=== PATIENT | male | born 1990 ===

== ENCOUNTER 2020-12-04 07:24 | Emergency (ER) | payer OTHER, SELFPAY ==
[2020-12-04 07:36] VITALS: BP 140/91; PULSE 82; RESP 18; TEMP 36.6; O2SAT 100; BMI 26.6
--- NOTE | 2020-12-04 07:42 | ED.EYEPROB ---
HPI - Eye Problem General Chief complaint: Eye Problems Stated complaint: left eye swelling, started last night Time Seen by Provider: 12/04/20 07:30 Source: patient Mode of arrival: Ambulatory Limitations: no limitations History of Present Illness HPI Narrative: This is a 30-year-old male comes with complaint of left eye will lid swelling. Patient states it seems to be his upper eyelid. His started last night about 330 and was progressing through the night. Patient states there is some pain in the eyelid. He denies any pain in the eye itself. He does not feel like his eye itself is irritated. Patient has not noticed any redness of the eyeball. He has not had any new vision changes. He does wear glasses. He does not wear contacts. Patient states he has not had an eye exam in about 2 years. He has never had any prior eye surgery. Patient denies any other medical issues. No daily medications. He does have an allergy to ibuprofen. Patient sees Ophthalmology or Optometry through the [facility]. Patient states he has been irritated and feels a little sticky but he has not had any drainage. He denies any activities or recent foreign bodies that may have caused his symptoms. Related Data Previous Rx's Medication Instructions Recorded bacitracin 500 unit/gram eye 0.25 inch EYE-LEFT .qhs 14 Days 12/04/20 ointment #3.5 g Allergies Allergy/AdvReac Type Severity Reaction Status Date / Time ibuprofen Allergy Severe Swelling Verified 12/04/20 07:36 of Lip/Tongue/Throat Review of Systems Review of Systems ROS Unobtainable: All systems reviewed & are unremarkable except as noted in HPI and below Patient History Social History Smoking Status: Never smoker Exam Narrative Exam Narrative: GEN: well nourished, well appearing male, alert and oriented x 3, patient appears to be in mild distress. HEENT: Atraumatic, pupils are equal round reactive to light, extraocular movements are intact, nares are clear, TMs are clear with no fluid, there is no conjunctival pallor. Throat is clear without any exudates, erythema, tonsillar enlargement or uvular deviation, no rashes or skin changes to the face. Visual acuity: nurses note. General: no globe trauma Eyelids: normal inspection on right, on the left patient has swelling of his upper eyelid, no warmth or erythema noted, there is no fluid collection or nodules appreciable, eyelids everted for exam on right with no foreign body or other skin changes. Conjunctiva/Sclera: normal inspection Corneas: normal inspection. EOM: intact, no palsy/entrapment Pupils: PERRL, normal accomadation, pupil normal Anterior Chambers: normal inspection, no hypema Posterior: normal fundoscopic but is limited. is not dilated exam HEART: Regular rate and rhythm without murmur, clicks, rubs. No carotid bruits, pulses are equal in upper and lower extremities LUNGS:Lungs clear to auscultation, no wheezes, rales, crackles, chest moves symmetrically MSCL: full range of motion, normal gait NEURO:CN 2-12 intact, sensation normal Initial Vital Signs Initial Vital Signs: Vital Signs Temperature 97.8 F 12/04/20 07:36 Pulse Rate 82 12/04/20 07:36 Respiratory Rate 18 12/04/20 07:36 Blood Pressure 140/91 H 12/04/20 07:36 Pulse Oximetry 100 12/04/20 07:36 MDM - Eye Problem MDM Narrative Medical decision making narrative: 30-year-old male with what appears to be blepharitis. Patient does wear glasses but does not wear contacts. No significant vision changes. Patient started on topical antibiotic. Warm compresses and follow up with Ophthalmology. States he can follow up with the [facility] but can follow-up with local ophthalmology if needed. Discharge Plan Departure Patient Disposition: Home Clinical Impression: Blepharitis Instructions: DI for Blepharitis Activity Restrictions/Additional Instructions: Follow-up with your physician or Ophthalmology next week for recheck. Use warm compresses wash rag 4 times daily to I to and clean. Scrub gently with a mild soapy water such as tear free/baby shampoo Use antibiotics as prescribed. Use antibiotic ointment to the eye once daily prior to sleep. You may place this morning once you arrive home Prescription to [facility] Please return for rapidly worsening symptoms, fevers, vision changes, increasing or new pain in the eyelid, around the face or within the eye itself, if you have pain with movement of her eye, if you developed purulent drainage, or severe headaches or other new or concerning symptoms. Prescriptions: New bacitracin 500 unit/gram ointment 0.25 inch EYE-LEFT .qhs 14 Days Qty: 3.5 RF: 0 Referrals: Isidro Mckeon MD [Physician] -
[2020-12-04 08:01] VITALS: BP 120/73; PULSE 80; RESP 16
== END 2020-12-04 08:03 | disposition home or self-care (01) ==
PROVIDERS: Emergency Provider Emergency Medicine
DX: H01.004 Unspecified blepharitis left upper eyelid (principal)
CPT/HCPCS: 99281